=== PATIENT | female | born 1995 | race Two or more races ===

== ENCOUNTER 2021-11-23 20:17 | Emergency (ER) | payer OTHER ==
[~2021-11-23] VITALS: Ht 167.6 cm; Wt 69.9 kg
[2021-11-24] MEDS ORDERED: KETO10TA2 PO (01:04)
[2021-11-24] MEDS ORDERED: NORFLEX100MG PO (01:04)
== END 2021-11-24 01:13 | disposition home or self-care (01) ==
LOC: ER 20:17
DX: M62.838 Other muscle spasm (principal); M54.2 Cervicalgia